=== PATIENT | male | born 1960 ===

== ENCOUNTER 2016-06-27 18:48 | Emergency (ER) | payer SELFPAY ==
[2016-06-27 19:54] VITALS: BP 132/76
[2016-06-27 19:55] LABS: Basophils % (Auto) 0.3 % (0.0-1.8); Eosinophils % (Auto) 0.8 % (0.0-4.3); Hematocrit 43.8 % (35.5-45.6); Hemoglobin 14.6 gm/dl (11.8-15.2); Mean Corpuscular HGB Conc 33 % (32-34); Mean Corpuscular Hemoglobin 27 pg (28-32); Mean Corpuscular Volume 80 fl (84-94); Platelet Count 141 K/mm3 (140-440); Red Blood Count 5.46 M/mm3 (3.65-5.03); Red Cell Distribution Width 14.2 % (13.2-15.2); White Blood Count 10.9 K/mm3 (4.5-11.0)
[2016-06-27 20:10] LABS: INR 1.11 (0.87-1.13)
[2016-06-27 20:11] LABS: Partial Thromboplastin Time 34.2 Sec. (24.2-36.6)
[2016-06-27 21:11] LABS: Bilirubin,Urine NEG (Negative); Blood,Urine NEG (Negative); Ketones,Urine TR mg/dL (Negative); Leukocyte Esterase,Urine NEG (Negative); Mucus,Urine FEW /HPF; Nitrite,Urine NEG (Negative); Urobilinogen,Urine < 2.0 mg/dL (<2.0)
[2016-06-27 21:26] LABS: Anion Gap 15 mmol/L; Blood Urea Nitrogen 13 mg/dL (9-20); Calcium 8.9 mg/dL (8.4-10.2); Carbon Dioxide 25 mmol/L (22-30); Chloride 102.8 mmol/L (98-107); Glucose 136 mg/dL (75-100); Potassium 3.8 mmol/L (3.6-5.0); Sodium 139 mmol/L (137-145)
== END 2016-06-27 21:30 | disposition left against medical advice (07) ==
LOC: ED 18:48
DX: R11.2 Nausea with vomiting, unspecified (principal); R19.7 Diarrhea, unspecified; F17.200 Nicotine dependence, unspecified, uncomplicated; Z53.21 Procedure and treatment not carried out due to patient leaving prior to being seen by health care provider
CPT/HCPCS: 36415; 80048; 81001; 84484; 85025; 85610; 85730; 93005; 93010